=== PATIENT | female | born 1950 | race Caucasian/White ===

== ENCOUNTER 2020-01-06 13:51 | Day surgery (SDC) | payer MEDICARE ==
[~2020-01-06] VITALS: Ht 167.6 cm; Wt 130.2 kg
[2020-01-06] VITALS (12 sets, daily range): BP systolic 121–162; BP diastolic 75–124
[2020-01-06] MEDS ORDERED: MIDAZolam 1mg/ml 10ml vial IV ONE (14:05)
[2020-01-06] MEDS ORDERED: fentaNYL/PF 50MCG/1 ML 2ML syringe IV ONE (14:05)
[2020-01-06] MEDS ORDERED: normal saline 1000ml 1,000 ML IV SCH (14:05)
[2020-01-06] MEDS ORDERED: FLEC100T35 PO (14:12)
[2020-01-06] MEDS ORDERED: METO100T14 PO (14:12)
[2020-01-06] MEDS ORDERED: WARF4TAB69 PO (14:12)
[2020-01-06] MEDS ORDERED: FURO20TA4 PO (14:12)
== END 2020-01-06 18:25 | disposition home or self-care (01) ==
LOC: SSTAY O 13:51
PROVIDERS: ATTEND Student in an Organized Health Care Education/Training Program
DX: I48.91 Unspecified atrial fibrillation (principal); I11.0 Hypertensive heart disease with heart failure; I50.22 Chronic systolic (congestive) heart failure; G47.33 Obstructive sleep apnea (adult) (pediatric); E78.49 Other hyperlipidemia; Z88.8 Allergy status to other drugs, medicaments and biological substances; Z79.899 Other long term (current) drug therapy; Z79.01 Long term (current) use of anticoagulants; Z98.890 Other specified postprocedural states; Z90.710 Acquired absence of both cervix and uterus; Z98.51 Tubal ligation status; Z83.3 Family history of diabetes mellitus; Z82.49 Family history of ischemic heart disease and other diseases of the circulatory system
CPT/HCPCS: 92960; 93005; J2250; J3010; J7030